=== PATIENT | male | born 2000 | race Caucasian/White ===

== ENCOUNTER 2022-11-30 06:29 | Day surgery (SDC) | payer OTHER, SELFPAY ==
[2022-11-28 08:39] VITALS: BMI 29.5
[2022-11-30] VITALS (7 sets, daily range): BP systolic 121–143; BP diastolic 72–88; PULSE 74–108; RESP 14–17; TEMP 36.1–36.6; O2SAT 93–99; BMI 29.5
--- NOTE | 2022-11-30 | PATH_ITS ---
[facility] Accession Number: [id number] No. of containers..01 Tissue . 01 Material submitted: . gluteal cleft - LEFT GLUTEAL MASS . 01 Diagnosis: Left Gluteal, Excision: Mature fibroadipose tissue, consistent with lipoma. IVANNA 12/06/2022 0916 Local . 01 Electronically signed: . Cortes Mathur MD, Dermatopathologist NPI- [id number] . 01 Gross description: . Received in formalin labeled left gluteal mass, is a 230 gram, 17.0 x 11.0 x 6.5 cm aggregate of multiple fragmented portions of yellow-brown, lobulated adipose tissue. Sectioning reveals a yellow-brown, lobulated cut surface with thin streaks of gillis-white fibrous tissue. There are no areas of hemorrhage or necrosis identified. Multiple senior sales representative sections are submitted in [id number]. ([id number]) /IVANNA 12/01/2022 1025 Local . 01 Pathologist provided ICD-10: D17.9 . 01 CPT . 213586 Specimen Comment: A courtesy copy of this report has been sent to [phone] Performed at: 01 [facility] [address] [place] [address], [place], [place] [id number] MD Mathew Viveros MD Phone: [phone]
[2022-11-30] MEDS: LACTATED RINGERS 1,000 ML 100 ML IV (07:25)
[2022-11-30] MEDS: ACETAMINOPHEN 325 MG TABLET 975 MG PO (07:37)
--- NOTE | 2022-11-30 07:41 | PM.PREOP ---
Pre-operative Note Interval Note History & Physical reviewed/Exam performed by Physician: Yes Changes to H&P: No
[2022-11-30] MEDS: CEFAZOLIN 2 GM/100 ML PREMIX 100 ML IV (07:57)
--- NOTE | 2022-11-30 08:18 | SUR.OPER ---
Prone on padded OR bed, head in foam head support, gel chest rolls, gel pad under knees, two pillows under lower legs, toes free of pressure, arms secured on padded arm boards at <90 degrees abduction with gel pad under right arm. Safety belt at upper torso.Tape across thighs.
[2022-11-30] MEDS: BUPIVACAINE 0.5% W/ EPI (PF) 30 ML VIAL INJ (08:34)
--- NOTE | 2022-11-30 09:55 | P.OP_ITS ---
Operative Date/Time/Diagnoses Date of procedure: 11/30/22 Time of procedure: 09:58 Pre-op diagnosis: Soft tissue neoplasm Post-op diagnosis: same Procedure & Clinicians Procedure: Excision of soft tissue mass 20 cm from left gluteus Same procedure as scheduled: Yes Indications: 22-year-old male with a large symptomatic soft tissue mass overlying the left gluteus muscle which is painful and enlarging Surgeon: Corey Alejandre Anesthesia Type: General Operative Notes Findings: Masses is consistent in its gross appearance with lipoma Specimen(s): other (Left gluteal mass) Estimated Blood Loss (mL): 25 Procedure in detail: Patient was brought to the operating room. Bilateral lower extremity compression devices were applied. General anesthesia was induced and he was intubated with an endotracheal tube. He was then placed prone and appropriately padded. He is prepped and draped in sterile fashion. Time-out was performed. An incision over the left gluteus and a horizontal fashion was made. There was a large soft tissue mass below the level of the subcutaneous tissue and above the muscle which was excised using electrocautery. The area was examined for hemostasis and this was achieved. Mass was approximately 20 cm in maximal diameter in its appearance was grossly consistent with a lipoma. A 19 Kisw[place]ili channel drain was placed into the cavity and brought out through the lateral aspect of the wound. Total of 30 mL of 0.25% bupivacaine was infiltrated into the subcutaneous tissue. This tissue was closed with 0 and then 3-0 Vicryl suture. Wound was sealed with Dermabond followed by Steri-Strips. Complications: none Post-operative Condition: stable Disposition: same day surgery
[2022-11-30] MEDS: ONDANSETRON 4 MG/2 ML INJ IV (10:40)
== END 2022-11-30 11:03 | disposition home or self-care (01) ==
PROVIDERS: PCP Family Medicine; Referring Provider Surgery; Visit Provider Surgery
PROC: (CPT 21931; principal; 2022-11-30 07:45)
DX: R22.2 Localized swelling, mass and lump, trunk (principal); D17.9 Benign lipomatous neoplasm, unspecified
CPT/HCPCS: 21931; J0690; J1100; J1885; J2250; J2405; J2704; J3010

== ENCOUNTER → 2022-12-27 16:21 | Outpatient (CLI) | payer OTHER, SELFPAY | PROVIDERS: PCP Family Medicine; Visit Provider Surgery | DX: L76.33 Postprocedural seroma of skin and subcutaneous tissue following a dermatologic procedure (principal); M79.18 Myalgia, other site | CPT/HCPCS: 10160; 87070; 87075; 87077; 87147; 87186; 87205 ==